=== PATIENT | female | born 1935 | race Caucasian/White ===

== ENCOUNTER 2023-12-17 09:29 | Emergency (ER) | payer OTHER ==
[~2023-12-17] VITALS: Ht 154.9 cm; Wt 53.5 kg
[2023-12-17 09:32] VITALS: BP 154/86; PULSE 84; RESP 16; TEMP 97.2; O2SAT 100
[2023-12-17] MEDS: LIDOCAINE MPF 1% 10 MG/ML VIAL INJ ONE (11:55)
[2023-12-17] MEDS: IBUPROFEN 600 MG TAB PO ONE (11:55)
[2023-12-17] MEDS: ACETAMINOPHEN 325 MG TAB PO ONE (11:55)
[2023-12-17] MEDS: methocarbamoL 500 MG TAB PO ONE (12:32)
[2023-12-17] MEDS ORDERED: ACET-10509 PO (14:42)
[2023-12-17] MEDS ORDERED: IBUP-2213 PO (14:42)
[2023-12-17] MEDS ORDERED: METH-1681 PO (14:42)
[2023-12-17 14:49] VITALS: BP 149/79; PULSE 79; RESP 18; TEMP 98; O2SAT 100
== END 2023-12-17 14:48 | disposition home or self-care (01) ==
LOC: MED 09:29
DX: S52.121A Displaced fracture of head of right radius, initial encounter for closed fracture (principal); J45.909 Unspecified asthma, uncomplicated; Z79.899 Other long term (current) drug therapy; W01.198A Fall on same level from slipping, tripping and stumbling with subsequent striking against other object, initial encounter; Y93.89 Activity, other specified; Y92.89 Other specified places as the place of occurrence of the external cause; Y99.8 Other external cause status
CPT/HCPCS: 25605; 73100; 73110; 99284; J2001